=== PATIENT | male | born 1950 | race African-American/Black ===

== ENCOUNTER → 2021-03-17 | Outpatient (CLI) | payer OTHER ==
[~2021-03-17] VITALS: Ht 185.4 cm; Wt 108.6 kg
[~2021-03-17] MED LIST: ACCUNEB SO1.25 MG/1 INH; ARMONAIR DIGIH55 MCG INH; ASA81BEC PO; AZELASTINE137 MCG/0. NASAL; LASIX 20 MG TAB20 MG PO; LIPITOR40 MG PO; MULTIPLE VITAM1 EAC2 PO; OXYCODONE HCL5 MG PO; PLAVIX 75 MG TA75 MG PO; PROTONIX40 M2 PO; SODIUM BICARBO650 M3 PO; TAMSULOSIN HCL0.4 MG PO; VITAMIN C1000 MG PO; VITAMIN C500 M2 PO; ZINC-22050 MG PO; ZOSYN 3.373.375 GM/1 IV
[2021-03-17 09:07] LABS: HEMOGLOBIN 8.1 gm/dL (14.0-18.0); MCH 29.2 pg (26.0-34.0); MCHC 32.5 g/dL (28.0-37.0); RBC 2.78 mil/uL (4.50-6.00); RDW 17.8 % (10.5-14.5); WBC 6.4 thou/uL (4.0-11.0)
[2021-03-17 09:16] LABS: CALCIUM 9.3 mg/dL (8.5-10.1); CREATININE 1.2 mg/dL (0.7-1.3); POTASSIUM 4.1 mmol/L (3.5-5.1)
[2021-03-17 09:18] VITALS: BP 179/89
[2021-03-17 10:20] LABS: APTT 35.1 Seconds (24.5-32.8); INR 1.04; PROTIME 11.3 Seconds (10.5-12.1)
[2021-03-17 14:26] LABS: ABSOLUTE NEUTROPHILS 7.2 thou/uL (1.4-8.2); BASOPHILS 0.2 % (0.0-2.0); EOSINOPHILS 3.7 % (0.0-3.0); HEMATOCRIT 24.1 % (42.0-52.0); HEMOGLOBIN 7.7 gm/dL (14.0-18.0); LYMPHOCYTES 11.3 % (24.0-44.0); MCHC 31.7 g/dL (28.0-37.0); MCV 91.5 fL (80.0-100.0); MONOCYTES 1.8 % (1.0-8.0); PLATELET COUNT 378 thou/uL (150-400); RBC 2.64 mil/uL (4.50-6.00); RDW 17.5 % (10.5-14.5); WBC 8.6 thou/uL (4.0-11.0)
[2021-03-17 14:30] VITALS: BP 156/78
[2021-03-17 14:36] LABS: ALBUMIN 2.1 g/dL (3.4-5.0); CALCIUM 8.7 mg/dL (8.5-10.1); CREATININE 1.1 mg/dL (0.7-1.3); POTASSIUM 4.1 mmol/L (3.5-5.1); TOTAL BILIRUBIN 0.3 mg/dL (0.2-1.0); TOTAL PROTEIN 7.4 g/dL (6.4-8.2)
[2021-03-17 14:55] VITALS: BP 177/93
--- NOTE | 2021-03-17 15:18 | EKG ---
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
[2021-03-17 15:23] LABS: URINE BILIRUBIN NEGATIVE (Negative); URINE BLOOD NEGATIVE (Negative); URINE CLARITY CLEAR; URINE COLOR YELLOW; URINE GLUCOSE-RANDOM* NEGATIVE (Negative); URINE KETONES NEGATIVE (Negative); URINE LEUKOCYTES-REFLEX NEGATIVE (Negative); URINE NITRITE-REFLEX NEGATIVE (Negative); URINE PROTEIN (DIPSTICK) TRACE (Negative); URINE SPECIFIC GRAVITY 1.015 (1.005-1.035); URINE UROBILINOGEN 0.2 E.U./dl (0.2-1.0)
[2021-03-17 16:00] VITALS: BP 151/84
--- NOTE | 2021-03-19 13:49 | HC ---
[facility] [place] [address] CONSULTATION Name: LISE CAMPBELL Room #: REG [facility].#: [id number] Admission: 03/17/21 Attend Phys: Jaxon Forte MD Discharge: Date of : 50 Report #: [id number] THIS REPORT FOR: cc: González Leong MD, Christopher B. MD Forman,Andrea Hebert MD ~ DOC #: [id number] Andrea Fox MD DATE OF SERVICE: 03/17/2021 REASON FOR CONSULTATION: We were asked by Dr. Forte to see the patient. HISTORY OF PRESENT ILLNESS: The patient is a 70-year-old brought over from [facility] to have an arteriogram to evaluate a nonhealing wound in the right lower extremity. The patient is status post amputation of the fourth and fifth toes, done 02/19/2021 with inadequate vascularization to heal the wound. This nonhealing has been treated with wound VAC. Arteriogram today demonstrates a severe obstruction in the right common femoral artery and we evaluated the patient for femoral endarterectomy. PAST HISTORY: Significant for neurologic dysfunction related to previous stroke. Patient also has stage IIIA chronic renal dysfunction with the creatinine approximately 1.6. Patient has been treated for subacute osteomyelitis of the right foot and he also has swallowing difficulty. MEDICATIONS: At the half-way includes ascorbic acid, aspirin, atorvastatin, heparin, ____, piperacillin, tazobactam, tamsulosin, zinc sulfate. ALLERGIES: None known. The patient also has been treated for lower extremity arterial occlusive disease. SOCIAL HISTORY: The patient lives in half-way setting. REVIEW OF SYSTEMS: CONSTITUTIONAL: Denies fever or chills. EYES: No vision changes. HENT: No headache. No hearing problems. No sinus problems. RESPIRATORY: No history of shortness of breath. CARDIAC No history of chest pain, palpitations. GASTROINTESTINAL: Swallowing difficulty. No nausea, vomiting of blood. GENITOURINARY: No urgency, frequency or blood. MUSCULOSKELETAL: We note osteomyelitis in right foot and recent fourth and fifth toe amputations on the right. [facility] [address] [address] CONSULTATION Name: SAUNDRA CMAPBELLALL Room #: REG LIZ Orellana#: [id number] Admission: 03/17/21 Attend Phys: Jaxon Forte MD Discharge: Date of : 50 Report #: [id number] NEUROLOGIC: The patient has a weak right side and according to family is not ambulatory. ENDOCRINE: No goiter, no tremor. HEMATOLOGIC: No bruisability or bleeding. SKIN: No rash or infection reported. PHYSICAL EXAMINATION: VITAL SIGNS: Blood pressure 150/80, heart rate 53, O2 sat 100%, respiratory rate 14. HEENT: No scleral icterus. I see no arcus. NECK: No bruit. No mass. CHEST: Clear to auscultation. HEART: Rhythm regular. No murmur. ABDOMEN: Soft. Protuberant. No tenderness. EXTREMITIES: We note dressing on right foot with recent amputation site. VASCULAR: Femoral pulse is grade 2 on the right, grade 1 on the left. No popliteal dorsalis pedis or posterior tibial pulses are palpable in either extremity. SKIN: The skin in the groin is somewhat macerated due to patient's posture with intertriginous areas moist and some excoriation. No active infection. NEUROLOGIC: Does not move right lower extremity, right arm moves proximally reasonably well. I do not see good distal motion on the right upper extremity. ASSESSMENT: The patient has nonhealing lesions in the right lower extremity status post amputations for osteomyelitis. This is related to the critical stenosis in the right femoral artery. I agree that femoral endarterectomy is appropriate to treat this, however, I am concerned that the skin in the groin is inhospitable at this point. I have reviewed the risks and details of surgery with the patient and his family. Risks include bleeding, infection, anesthesia risks and of course failure of the operation, groin infection after femoral endarterectomy can be a devastating problem and I have suggested that we attempt to ____ help of our wound care colleagues to help clean the groin as best we can prior to surgery. Dr. Plascencia was kind enough to visit the patient with me and he will initiate a wound care regimen at the half-way and we will try to arrange for return for surgery next week. Thank you for consult. MD HEENA Marie/MAN/[address] [address] CONSULTATION Name: ADRIANLISE Room #: REG OLIVIAOleg Orellana#: [id number] Admission: 03/17/21 Attend Phys: Jaxon Forte MD Discharge: Date of : 50 Report #: [id number] <ELECTRONICALLY SIGNED> By: Andrea Fox MD 03/19/21 1349 1158 2156 Andrea Fox MD /nt
== END | disposition home or self-care (01) ==
LOC: CATH 03-15 09:40
PROVIDERS: Surgery Vascular Surgery; ATTEND Nuclear Medicine Nuclear Cardiology
DX: I70.213 Atherosclerosis of native arteries of extremities with intermittent claudication, bilateral legs (principal); I70.238 Atherosclerosis of native arteries of right leg with ulceration of other part of lower leg; L97.919 Non-pressure chronic ulcer of unspecified part of right lower leg with unspecified severity; I70.1 Atherosclerosis of renal artery; I12.9 Hypertensive chronic kidney disease with stage 1 through stage 4 chronic kidney disease, or unspecified chronic kidney disease; N18.30 Chronic kidney disease, stage 3 unspecified; I25.10 Atherosclerotic heart disease of native coronary artery without angina pectoris; E78.5 Hyperlipidemia, unspecified; Z98.890 Other specified postprocedural states; Z79.899 Other long term (current) drug therapy; Z79.82 Long term (current) use of aspirin; Z20.822 Contact with and (suspected) exposure to COVID-19
CPT/HCPCS: 62110; 62900; 70005

== ENCOUNTER 2021-03-26 06:17 | Inpatient (IN) | payer OTHER ==
[2021-03-26] VITALS (34 sets, daily range): BP systolic 86–186; BP diastolic 44–79
[~2021-03-26] VITALS: Ht 182.9 cm; Wt 97.7 kg
[~2021-03-26 06:17] MED LIST changes: +FERROUS SULFAT325 M2 PO; +FLOMAX0.4 MG PO; +GLYCOLAX119 GM PO; +MUPIROCIN1 GM TOP; +SPS15 GM/60 M PO; +VOLTAREN100 GM TOP
--- NOTE | 2021-03-26 18:00 | NUR ---
Dr. Judy london. re Hbg low. Awaiting call back.
[2021-03-26 18:20] LABS: HEMATOCRIT 21.2 % (42.0-52.0); MCH 28.8 pg (26.0-34.0); MCHC 31.9 g/dL (28.0-37.0); MCV 90.2 fL (80.0-100.0); RBC 2.35 mil/uL (4.50-6.00); RDW 18.6 % (10.5-14.5); WBC 7.8 thou/uL (4.0-11.0)
[2021-03-26 18:25] LABS: HEMOGLOBIN 6.7 gm/dL (14.0-18.0)
[2021-03-26 18:41] LABS: CALCIUM 8.4 mg/dL (8.5-10.1); CREATININE 1.2 mg/dL (0.7-1.3); MAGNESIUM 1.8 mg/dL (1.8-2.4); POTASSIUM 4.1 mmol/L (3.5-5.1)
[2021-03-26 19:11] LABS: FOLIC ACID 7.1 ng/mL (8.6-58.9)
[2021-03-27] VITALS (15 sets, daily range): BP systolic 95–142; BP diastolic 47–65
--- NOTE | 2021-03-27 00:09 | NUR ---
This RN spoke to patients sister at 2130. Updated on plan of care and patient status.
--- NOTE | 2021-03-27 00:10 | NUR ---
During RNs 0000 assessment, patients POPPY drain incision site is noticebly bleeding. Discussed with Dr Medrano earlier regarding day shifts similair observation. This RN applied pressure to site with ABDs for 10 minutes[address]aced secure tegaderm dressing over site. Will continue to monitor. Bleeding appears contained for now.
[2021-03-27 04:43] LABS: HEMOGLOBIN 7.7 gm/dL (14.0-18.0); MCH 29.3 pg (26.0-34.0); MCHC 32.1 g/dL (28.0-37.0); MCV 91.2 fL (80.0-100.0); RBC 2.63 mil/uL (4.50-6.00); RDW 18.4 % (10.5-14.5); WBC 5.8 thou/uL (4.0-11.0)
[2021-03-27 04:55] LABS: CALCIUM 8.5 mg/dL (8.5-10.1); CREATININE 1.2 mg/dL (0.7-1.3); MAGNESIUM 1.8 mg/dL (1.8-2.4); POTASSIUM 3.8 mmol/L (3.5-5.1)
--- NOTE | 2021-03-27 10:35 | NUR ---
PT TRANSFERED TO CCU VIA BED WITH CCU NURSE ON MONITOR. ALL BELONGINGS WITH PT. DR. YEAGER INFORMED. LEFT MESSAGE WITH PT SISTER LA.
[2021-03-27 17:33] LABS: % SATURATION 25 % (20-39); IRON 40 ug/dL (65-175); TIBC 157 ug/dL (250-450)
--- NOTE | 2021-03-27 17:40 | NUR ---
PT TRANSFERED TO UNIT FROM ICU. HE DOES HAVE A PIERRE, WOUND VAC IN PLACE AND SEALED REAPPLIED. PT IS ALERT ORIENTED X4. DOES NOT SEEM TO BE IN PAIN OR DISTRESS. WILL CONT WITH PLAN OF CARE.
[2021-03-28 04:26] VITALS: BP 152/71
[2021-03-28 04:40] VITALS: BP 152/71
--- NOTE | 2021-03-28 05:03 | NUR ---
PROGRESS PT ALERT ORIENTED TO SELF, STAFF AND PLACE. BUT FORGETFUL AND CONFUSED. VSS, LUNGS CLEAR, ABDOMEN SOFT WITH ACTIVE BOWELS SOUNDS. RIGHT GROIN WITH DRSG FROM PROCEDURE COVERED WITH TEGADERM INTACT AND CLEAN AND DRY NO SWELLING OR FIRMNESS NOTED. . WOUND VAC DRAPE TO RIGHT GROIN HAD A LEAK REINFORCED WITH TRANSPARENT DRESSING AND LEAK WAS SEALED SUCTION AT 125CM OLD BLOODY DRAINAGE NOTED IN TUBING BUT CANNISTER IS EMPTY. 25 CC'S OF SANGUINOUS DRAINAGE FROM POPPY TO LEFT GROIN. HYDROCODONE GIVEN FOR PAIN WITH EFFECT PT SLEPT AFTER EACH DOSE.
[2021-03-28 08:00] VITALS: BP 156/75
[2021-03-28 11:42] LABS: HEMATOCRIT 22.9 % (42.0-52.0); HEMOGLOBIN 7.3 gm/dL (14.0-18.0); MCH 29.1 pg (26.0-34.0); MCHC 31.9 g/dL (28.0-37.0); MCV 91.4 fL (80.0-100.0); RBC 2.5 mil/uL (4.50-6.00); RDW 18.1 % (10.5-14.5); WBC 5.9 thou/uL (4.0-11.0)
[2021-03-28 11:50] LABS: CREATININE 1.4 mg/dL (0.7-1.3); MAGNESIUM 1.8 mg/dL (1.8-2.4); POTASSIUM 3.7 mmol/L (3.5-5.1)
--- NOTE | 2021-03-28 14:20 | NUR ---
CALM, COOPERATIVE. ORIENTED TO SELF AND PLACE. SR WITH BBB PER TELE. DENIES CP, SOA. LABS DRAW READILY FROM CENTRAL LINE, BLOOD RETURN BRISK. FALL PRECAUTIONS IN PLACE.
[2021-03-28 16:00] VITALS: BP 157/81
[2021-03-28 19:17] VITALS: BP 140/51
[2021-03-29 04:16] VITALS: BP 140/58
[2021-03-29 05:48] LABS: HEMATOCRIT 20.9 % (42.0-52.0); HEMOGLOBIN 6.8 gm/dL (14.0-18.0); MCH 29.6 pg (26.0-34.0); MCHC 32.4 g/dL (28.0-37.0); MCV 91.3 fL (80.0-100.0); RBC 2.29 mil/uL (4.50-6.00); WBC 5.9 thou/uL (4.0-11.0)
[2021-03-29 06:03] LABS: CALCIUM 8.9 mg/dL (8.5-10.1); CREATININE 1.5 mg/dL (0.7-1.3); MAGNESIUM 1.8 mg/dL (1.8-2.4); POTASSIUM 3.6 mmol/L (3.5-5.1)
--- NOTE | 2021-03-29 06:06 | NUR ---
PATIENTS CARES WERE ASSUMED AT SHIFT CHANGE. PATIENT WAS ASSESSED AND MEDS WERE PASSED. PATIENT TURNED RIGHT TO LEFT WITH THE OBJECTIVE TO KEEP HIM OFF HIS BACK. PAIN MEDS GIVEN WERE PO MEDS. PATIENT WANTED IV PAIN MED HOWEVER WHEN ASK TO RATE HIS PAIN HE WOULD STATE 6/10. WILL CONTINUE TO MAKE HOURLY ROUNDS. THE BED IS IN A LOW AND LOCKED POSITION. THE BED ALARM IS ON.
[2021-03-29 07:25] VITALS: BP 160/57
--- NOTE | 2021-03-29 09:46 | NUR ---
Assess for low daniel. S/p right femoral endardectomy. Eating 100% of meals. ST has assessed and placed on modified diet order with swallow precautions. Wts usually 230-240 lb. ? current wt 250 lb. Low nutrition risk
[2021-03-29 11:05] VITALS: BP 134/66
[2021-03-29 15:35] VITALS: BP 155/67
[2021-03-29 16:17] LABS: HEMOGLOBIN 6.8 gm/dL (14.0-18.0); MCHC 32.2 g/dL (28.0-37.0)
[2021-03-29 16:18] LABS: HEMATOCRIT 21.2 % (42.0-52.0); MCH 29.3 pg (26.0-34.0); MCV 91.2 fL (80.0-100.0); RBC 2.33 mil/uL (4.50-6.00); RDW 18.3 % (10.5-14.5); WBC 6.1 thou/uL (4.0-11.0)
--- NOTE | 2021-03-29 17:20 | NUR ---
Patient admits to [facility] from [facility]. Patient had femoral enarterectomy. Patient alert answers questions appropriately. Sp with admissions at [facility]. Patient had been at another nursing facility. He admitted from that facility with gangrene foot. Patient admitted to [facility]. From [facility] patient admitted to [facility] 03/04/21 for post acute care. Wound care follows patient at [facility]. Plan return to [facility]. Will need to obtain auth for patient for post acute care. Therapy evals in process. Faxed updated clinical info to [facility]. Sp with sister Damon Mandujano and updated role of casemgt. Cont to follow for dc planning.
[2021-03-29 19:48] VITALS: BP 144/57
[2021-03-29 23:35] VITALS: BP 151/58
[2021-03-30] VITALS (7 sets, daily range): BP systolic 146–186; BP diastolic 55–87
--- NOTE | 2021-03-30 05:31 | NUR ---
PT RESTING IN BED THRU THE NOC, TURNING Q 2HRS AND NEEDED, WND VAC REMAINS INTACT, RIGHT FOOT DRESSING CDI ELEVATED IN PROFO BOOT, VSS, WILL CON'T TO MONITOR PER PPOC.
--- NOTE | 2021-03-30 11:49 | NUR ---
R groin POPPY discontinued, R groin prevena dressing reinforced- both by TIAGO Rodriguez.
--- NOTE | 2021-03-30 12:07 | PATH ---
[facility] [address] [place] [address] PATHOLOGY RPT PROCEDURE Name: LISE CAMPBELL Room #: 214-P [facility] IN M.R.#: [id number] Admission: 03/26/21 Date of : 50 Discharge: Report #: [id number] Path Case #: [id number] [facility] Accession Number: [id number] . 01 Material submitted: . femur - RIGHT FEMORAL PLAQUE. Modifiers: right . 01 Clinical history: . FEMORAL ENDARTERECTOMY . 02 Diagnosis: Right femoral plaque, femoral endarterectomy: - Fragments of vessel wall with myxoid changes as well as calcific atherosclerotic material. . (IUV:mml; 03/29/2021) . QL 03/29/2021 182 Local . 02 Electronically signed: . Sheba Lemon MD, Pathologist NPI- [id number] . 01 Gross description: . Received in formalin labeled "Lise Campbell, right femoral plaque" are multiple irregular, bazzi yellow calcified portions of firm tissue measuring in aggregate 5.1 x 3.2 x 1.4 cm. Specimen is serially sectioned to reveal a bazzi yellow gritty cut surface. Care Worker section of the specimen are submitted after decalcification in cassette A1.([facility]; 03/27/2021) GZA/GZA 03/27/2021 1100 Local . 02 Pathologist provided ICD-10: I73.89 . 02 CPT . 606471, 370614 Specimen Comment: A courtesy copy of this report has been sent to [phone] Specimen Comment: [id number] Specimen Comment: Report sent to / DR IVY Performed at: [address] [id number] MD Diomedes Lopez MD Phone: [phone] Performed at: [address] [id number] [address] [address] PATHOLOGY RPT PROCEDURE Name: LISE CAMPBELL Room #: 214-P [facility] IN M.R.#: [id number] Admission: 03/26/21 Date of : 50 Discharge: Report #: [id number] Path Case #: [id number] MD Sheba Lemon MD Phone: [phone]
--- NOTE | 2021-03-30 12:15 | O ---
[facility] [place] [address] OPERATIVE REPORT Name: LISE CAMPBELL Room #: 214-P ADM IN M.R.#: [id number] Admission: 03/26/21 Attend Phys: Mike Kim MD Discharge: Date of : 50 Report #: [id number] THIS REPORT FOR: cc: González Leong MD, Christopher B. MD Forman, John M. MD ~ DOC #: [id number] cc: Wound Care Unit Andrea Fox MD DATE OF SERVICE: 03/26/2021 PREOPERATIVE DIAGNOSIS: Right lower extremity arterial occlusive disease. POSTOPERATIVE DIAGNOSIS: Right lower extremity arterial occlusive disease. OPERATION: Right femoral endarterectomy with patch closure. SURGEON: Andrea Fox MD. REGENERATION OPERATOR: TIAGO Kulkarni. ANESTHESIA: General. INDICATIONS: The patient is a 70-year-old seen for Dr. Vasquez and for the wound care unit. The patient is a longterm resident who has nonhealing lesions of amputated fourth and fifth toes on the right foot. The patient has arterial occlusive disease and arteriography demonstrates a high-grade stenosis in the right common femoral artery that appears to be the limiting lesion. I have seen the patient last week, but was concerned about skin issues. The wound care unit has attending the patient in the longterm and has optimized the condition of his skin for this procedure. FINDINGS AND TECHNIQUE: After general anesthesia was established, incision was made in the right groin to expose the common, deep and superficial femoral artery. There was intense reaction from previous arteriogram and from the Mynx closure that obscured the vessel. Careful dissection allowed us to isolate the vessel, however. Once we were satisfied with the isolation of the vessel, 10,000 units of heparin were given. The femoral vessels were occluded and the arteriotomy was made. The endarterectomy was performed removing a significant bulk of calcium. When this was complete, tacking sutures were placed at the transition zone and then the arteriotomy was closed with a thin-walled pericardial patch flows established after the vessels were backbled. [facility] [address] [place] [address] OPERATIVE REPORT Name: ADRIANLISE Room #: 214-P [facility] IN M.R.#: [id number] Admission: 03/26/21 Attend Phys: Mike Kim MD Discharge: Date of : 50 Report #: [id number] When hemostasis was satisfactory, the wound was irrigated with antibiotic solution. A drain was placed and then the wound was closed in layers and then a Prevena dressing was applied. Protamine had been given to partially reverse the heparin. The patient was taken to the recovery area in good condition with a warm foot. All counts were reported as correct. Andrea Fox MD JF/EL <ELECTRONICALLY SIGNED> By: Andrea Fox MD 03/30/21 1215 0855 1117 Andrea Fox MD /robb
--- NOTE | 2021-03-30 12:21 | HC ---
[facility] [place] [address] CONSULTATION Name: LISE CAMPBELL Room #: 214-P ADM IN M.R.#: [id number] Admission: 03/26/21 Attend Phys: Mike Kim MD Discharge: Date of : 50 Report #: [id number] THIS REPORT FOR: cc: González Leong MD, Christopher B. MD Stephens, Thad A. MD ~ DOC #: [id number] Jamari Blue MD DATE OF SERVICE: 03/29/2021 WOUND CARE CONSULTATION PERSONAL PHYSICIAN: Dr. Alvaro Leong. CHIEF COMPLAINT: Right foot wound, status post amputation. HISTORY OF PRESENT ILLNESS: This is a 70-year-old black male who we have been following at a skilled facility for a wound to his right foot, status post fourth and fifth ray resection. The patient now most recently had angiogram with multiple stents placed. The patient most recently was seen by Dr. Fox and had endarterectomy of his right common femoral artery. The patient denies any other associated concerns at this time. The patient denies any other associated wounds. We have been asked to follow the patient for the right foot wound. The patient had an amputation secondary to osteomyelitis of the 4th and 5th toes. PAST MEDICAL HISTORY: Significant for hypertension, coronary artery disease, hyperlipidemia, previous CVA, peripheral arterial disease, now status post multiple stents and the recent endarterectomy. CURRENT MEDICATIONS: Multiple, I reviewed the patient's medication list. DRUG ALLERGIES: None. SOCIAL HISTORY: The patient does not smoke or drink alcohol. FAMILY HISTORY: Not pertinent to current medical condition. REVIEW OF SYSTEMS: CONSTITUTIONAL: The patient denies fevers or chills. NEUROLOGIC: The patient denies any numbness, tingling, weakness in arms and legs. EYES: No complaints. ENT: No complaints. CARDIOVASCULAR: The patient denies chest pain, palpitations, peripheral edema. RESPIRATORY: The patient denies shortness of breath, cough or wheezes. [facility] [address] [place] [address] CONSULTATION Name: LISE CAMPBELL Room #: 214-[facility] IN ..#: [id number] Admission: 03/26/21 Attend Phys: Mike Kim MD Discharge: Date of : 50 Report #: [id number] GASTROINTESTINAL: The patient denies nausea, vomiting, abdominal pain. GENITOURINARY: The patient denies urgency or frequency. MUSCULOSKELETAL: No complaints. SKIN: The patient has a surgical wound of the fourth and fifth, right foot amputation site, which is necrotic. PHYSICAL EXAMINATION: VITAL SIGNS: Temperature 37.4, pulse 84, respirations 16, BP 134/66. GENERAL: This is alert and oriented x2 to person and place, but not time. A black male who is in no obvious distress. HEENT: Normocephalic, atraumatic. Mucous membranes are somewhat dry. Pupils are round. Sclerae are white. NECK: Without JVD. LUNGS: Clear. HEART: Regular. ABDOMEN: Soft, nontender. Evaluation of right groin reveals a negative pressure device to be in place and functioning. EXTREMITIES: Evaluation of right foot reveals the foot to be warm to touch. There is 1+ dorsalis pedis and posterior tibial pulse. Evaluation of the lateral aspect of the foot reveals surgical wound with a dry eschar. There is no erythema or warmth. No signs of cellulitis. Left foot is intact. NEUROLOGIC: Cranial nerves II through XII grossly intact. Motor and sensory are grossly intact. LABORATORY DATA: White count 5.9, hemoglobin 6.8, BUN 14, creatinine 1.5, albumin 2.1. IMPRESSION: 1. Surgical wound, right lateral foot, status post fourth and fifth ray amputation with necrosis. 2. Peripheral arterial disease, now status post multiple stents and recent right common femoral endarterectomy. 3. Protein calorie malnutrition -- severe with albumin of 2.1. 4. Generalized debility. PLAN: At this time, we will consult podiatry for debridement of the right foot wound. We will continue with maximizing the patient's oral protein supplementation for healing. We will utilize physical and occupational therapy and strengthening. We will continue all other current medications. I appreciate the ability to consult. Jamari Blue MD [facility] [place] [address] CONSULTATION Name: LISE CAMPBELL Room #: 214-P ADM IN M.R.#: [id number] Admission: 03/26/21 Attend Phys: Mike Kim MD Discharge: Date of : 50 Report #: [id number] <ELECTRONICALLY SIGNED> By: Jamari Blue MD 03/30/21 1221 1140 0024 Jamari Blue MD /nt
[2021-03-31 04:45] VITALS: BP 158/80
[2021-03-31 07:50] VITALS: BP 151/71
[2021-03-31 09:54] LABS: HEMATOCRIT 24.5 % (42.0-52.0); HEMOGLOBIN 7.9 gm/dL (14.0-18.0); MCH 28.8 pg (26.0-34.0); MCHC 32.4 g/dL (28.0-37.0); MCV 88.8 fL (80.0-100.0); RBC 2.75 mil/uL (4.50-6.00); RDW 18.5 % (10.5-14.5); WBC 6.3 thou/uL (4.0-11.0)
[2021-03-31 10:00] LABS: CALCIUM 9.1 mg/dL (8.5-10.1); CREATININE 1.4 mg/dL (0.7-1.3); MAGNESIUM 1.8 mg/dL (1.8-2.4); POTASSIUM 3.7 mmol/L (3.5-5.1)
--- NOTE | 2021-03-31 12:07 | NUR ---
Clinical updated faxed to [facility] as well as [facility] for SNF auth request. Possible dc to snf tomorrow pending I/D per Podiatry. Will follow.
--- NOTE | 2021-03-31 14:16 | NUR ---
PT IS AXOX3; PT IS FORGETFUL OF DATE/DAY. VSS, AFEBRILE, PT IS SR/1AVB ON MONITOR. PT HAS WOUND VAC ATTACHED TO R GROIN. WOUND VAC HAS BEEN INTERMITTENT WITH SEAL. DR YEAGER CONSULTED, PT/OT CONSULTED, CASE MGMT CONSULTED, PODIATRY CONSULTED. PT TO BE NPO AFTER MIDNIGHT WITH DEBRIDEMENT/SURGERY ON R FOOT. FREQUENT ROUNDING.
[2021-03-31 15:39] VITALS: BP 152/72
[2021-04-01] VITALS (8 sets, daily range): BP systolic 107–148; BP diastolic 55–63
[2021-04-01 05:04] LABS: HEMATOCRIT 21.8 % (42.0-52.0); HEMOGLOBIN 7.2 gm/dL (14.0-18.0); MCH 29.4 pg (26.0-34.0); MCHC 33.2 g/dL (28.0-37.0); MCV 88.7 fL (80.0-100.0); RBC 2.46 mil/uL (4.50-6.00); RDW 18.6 % (10.5-14.5); WBC 5.4 thou/uL (4.0-11.0)
[2021-04-01 05:24] LABS: CALCIUM 8.6 mg/dL (8.5-10.1); CREATININE 1.2 mg/dL (0.7-1.3); MAGNESIUM 1.9 mg/dL (1.8-2.4); POTASSIUM 3.8 mmol/L (3.5-5.1)
--- NOTE | 2021-04-01 06:13 | NUR ---
PATIENT IS A/O X4 HE IS SLOW TO RESPOND AND THINK THINGS THROUGH. PATIENTS CARE WAS ASSUMED AT SHIFT CHANGE. PATIENT WAS ASSESSED AND MEDS WERE PASSED. ROUNDS WERE DONE DRESSING PLACED. THE BED IS IN A LOW AND LOCKED POSITION.
--- NOTE | 2021-04-01 08:38 | H ---
[facility] [place] [address] HISTORY AND PHYSICAL Name: LISE CAMPBELL Room #: 214-P ADM IN M.R.#: [id number] Admission: 03/26/21 Attend Phys: Mike Kim MD Discharge: Date of : 50 Report #: [id number] THIS REPORT FOR: cc: González Leong MD, Christopher B. MD Rizzi,Jaime Hebert DPM ~ DOC #: [id number] Jaime Webb MD DATE OF SERVICE: 03/26/2021 INTRODUCTION: This is a 70-year-old -[place] male who I am asked to be seen for a right foot wound. HISTORY OF PRESENT ILLNESS: This is a 70-year-old -[place] male with multiple medical comorbidities. The patient has a wound on the right foot, status post previous fourth and fifth partial ray resection. The patient has not been healing, but he did see a cardiothoracic surgeon who did a subtotal right common femoral endarterectomy and also seeing Dr. Pedraza for further stenting. PAST MEDICAL HISTORY: Significant for hypertension, CAD, PAD, history of cerebrovascular accident as well, hyperlipidemia, high cholesterol. MEDICATIONS: In the chart, no changes to them, was taking atorvastatin, Lasix, Zosyn, Protonix, albuterol, Flomax and Plavix. ALLERGIES: No known drug allergies. PAST SURGICAL HISTORY: Noted a previous right partial fifth and fourth ray resection, previous femoral endarterectomy and stenting by Dr. Pedraza to lower extremity. FAMILY HISTORY: Noncontributory. SOCIAL HISTORY: The patient is seen at bedside at [facility] somewhat confused, but pleasant. He is retired, not working. No history of smoking or recreational drugs. PHYSICAL EXAMINATION: GENERAL: The patient is a well-developed, well-nourished -[place] male. EXTREMITIES: The upper extremity was worked up by the hospitalist and the ER physician, has no change in upper extremity. The lower extremity exam shows he has an open wound on the right lateral foot. The tunnel was down further along the metatarsals and also along the tendons. [facility] [address] [place] [address] HISTORY AND PHYSICAL Name: LISE CAMPBELL Room #: 214-P [facility] IN M.R.#: [id number] Admission: 03/26/21 Attend Phys: Mike Kim MD Discharge: Date of : 50 Report #: [id number] The wound has no significant granular tissue present, but more slough and tannish tissue and friable tissue. Previous vascular exam was worked up, is in the chart. X-rays are not taken thus far. LABORATORY DATA: His white blood cell count is normal. ASSESSMENT: Wounds to right foot with peripheral vascular disease, previously revascularized. PLAN: For right foot debridement. I offered him the possibility of a third digit amputation as well. I want to get a good plantar and dorsal flap, so this will heal and may be difficult to heal without being aggressive with this. I also see the possibility of this being staged and possible transmetatarsal amputation at some point. The patient and I discussed the possibility of a third digit amputation, but was very adamant about no other toes being amputated. I did start the conversation, so he understands this is a possibility though he also may have to face the reality of a transmetatarsal amputation because of the healing potential at this point could be difficult. He is scheduled for 04/01 that is tomorrow morning at 7:30 a.m. We talked about risks and benefits, risks being transmetatarsal amputation, delayed healing and possible BKA. MD URI [facility] [place] <ELECTRONICALLY SIGNED> By: Jaime Webb DPM 04/01/21 0838 1319 1358 Jaime Webb DPM /nt
--- NOTE | 2021-04-01 14:36 | NUR ---
Pt had I/D this am in the OR per Dr. Webb. Pt is NWB except for stand pivot tx using the postop shoe. Therapy to reeval tomorrow and this update and clarification on wound care and any iv atb orders will need to be faxed to [facility] with a new SNF auth request. [facility] called back today and cancelled the request from yesterday as the pt is not dc ready today and they do not feel they have sufficent documentation to auth a SNF stay. They are concerned about the pt's rehab potential and do not feel he needs snf unless he is on iv atb. Pt given 1xdose of IV ATB prior to the OR this am. Cultures pending and Dr. Webb to defer to Wound care regarding any iv atb orders at ma. Clinical update and [facility] request for new auth submission tomorrow called to admissions at [facility]. Discussed with the care team. CM to resubmit [facility] snf auth request in the am with the above requested documentation.
[2021-04-02] VITALS (8 sets, daily range): BP systolic 109–147; BP diastolic 54–67
--- NOTE | 2021-04-02 04:48 | NUR ---
ASSUMED PT CARE AT CHANGE OF SHIFT, PT IS AWAKE, ALERT AND ORIENTED, ABLE TO MAKE NEEDS KNOWN, PAIN MEDS Q4HRS PRN FOR R. EXTREMITY PAIN, DRESSING TO THE R. FOOT INTACT; ASSESSMENTS CHARTED; MEDS GIVEN PER MAR; SR/BBB ON TELE; NO NEEDS AT THIS TIME; WILL CONTINUE TO MONITOR AND FOLLOW POC
[2021-04-02 05:34] LABS: HEMATOCRIT 21.4 % (42.0-52.0); MCH 29.1 pg (26.0-34.0); MCHC 32.6 g/dL (28.0-37.0); MCV 89.2 fL (80.0-100.0); RBC 2.4 mil/uL (4.50-6.00); RDW 17.9 % (10.5-14.5); WBC 5.7 thou/uL (4.0-11.0)
[2021-04-02 05:59] LABS: CALCIUM 8.7 mg/dL (8.5-10.1); CREATININE 1.3 mg/dL (0.7-1.3); POTASSIUM 4.4 mmol/L (3.5-5.1)
--- NOTE | 2021-04-02 09:18 | NUR ---
WOUND CONSULT; ROUNDING WITH DR LEONCIO SOTOMAYOR TODAY. WE ASSESSED THE RIGHT FOOT. FIRST ASSESSMENT SINCE SURGERY. THE INCISION LINE IS APPROXIMATED WITH SUTURES. THE ISCISION BEGAN TO BLEED WITH MILD LUCRECIA BLEEDING. I HELD PRESSURE FOR A FEW MINUTES THEN THE BLEEDING SLOWED. I REPORTED THE TO THE RN TODAY AND ASKED HIM TO ASSESS THE DRESSING FOR BLEEDING. THE PERIWOUND IS WNL AT THIS TIME. RECOMMENDATIONS; 1-XEROFORM GAUZE, ABD,KERLIX FOR NOW. DISCUSSED WITH RN
--- NOTE | 2021-04-02 20:06 | PATH ---
[facility] [address] [place] [address] PATHOLOGY RPT PROCEDURE Name: LISE CAMPBELL Room #: 214-P ADM IN M.R.#: [id number] Admission: 03/26/21 Date of : 50 Discharge: Report #: [id number] Path Case #: [id number] [facility] Accession Number: [id number] . 01 Material submitted: . foot - RIGHT FOOT . Modifiers: right . 01 Clinical history: . FEMORAL ENDARTERECTOMY DEBRIDEMENT RIGHT FOOT WOUND . 02 Diagnosis: Right foot, debridement: - Fragments of subcutaneous tissue showing marked acute inflammation, fibrinoid degeneration, dystrophic calcifications as well as fat necrosis, compatible with debridement tissue. 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 02 Electronically signed: . Sheba Lemon MD, Pathologist NPI- [id number] . 01 Gross description: . The specimen is received in formalin, labeled "Lise Campbell, right foot" is a 3 x 1 x 0.6 cm aggregate of soft pink-bazzi to renteria-white tissue. Skin or bone is not identified. Archivist Military History sections are submitted in A1.([facility]; 04/01/2021) MISTY/MISTY 04/02/2021 1612 Local . 02 Pathologist provided ICD-10: I96, S91.301A . 02 CPT . 191528 Specimen Comment: A courtesy copy of this report has been sent to [phone] Specimen Comment: [phone], , Specimen Comment: Report sent to ,DR YEAGER,DR JARVIS / DR IVY Performed at: [address] [id number] MD Diomedes Lopez MD Phone: [phone] Performed at: [address] [id number] [address] [address] PATHOLOGY RPT PROCEDURE Name: LISE CAMPBELL Room #: 214-P [facility] IN M.R.#: [id number] Admission: 03/26/21 Date of : 50 Discharge: Report #: [id number] Path Case #: [id number] MD Sheba Lemon MD Phone: [phone]
[2021-04-03 05:13] VITALS: BP 117/59
--- NOTE | 2021-04-03 05:31 | NUR ---
ASSUMED CARE OF PT AT SHIFT CHANGE. PT IS AOX2-3 AND LETS NEEDS BE KNOWN. FALL PRECAUTION IN PLACE. PT REPORTED PAIN AND WAS TREATED PRNS. ASSESSMENT CHARTED. PT TURNED WHEN AGREEABLE. RLE DRESSINGS ARE C/D/I. PT WAS ALE TO GET COMFORTABLE AND SLEEP PART OF THE SHIFT. VSS AND NO S/S OF ACUTE DISTRESS. WILL CONTINUE TO MONITOR FOR CHANGES.
[2021-04-03 07:40] VITALS: BP 123/60
[2021-04-03 11:20] VITALS: BP 137/70
[2021-04-03 15:45] VITALS: BP 142/59
--- NOTE | 2021-04-03 17:52 | NUR ---
Patient refused dressing change.
[2021-04-03 20:15] VITALS: BP 130/55
--- NOTE | 2021-04-04 03:43 | NUR ---
ASSESSMENTS CHARTED, MEDS CHARTED GIVEN. PATIENT LAYING IN BED DURING SHIFT. PATIENT REFUSES TO BE MOVED. PATIENT IS FEELING CONSTIPATED. REFUSED MIRALAX, BUT DID DRINK PRUNE JUICE. PATIENT CONTINUOUSLY ASKS FOR PAIN MEDS PRIOR TO WHEN THEY ARE AVAILABLE. PATIENT IS GOING TO HAVE A ULTRASOUND OF SOFT TISSUE IN THE AM. MIRIAM DRESSING FROM ENDARECTOMY IS NOT SEALED AT THIS POINT. DRESSING CLEANED AND REINFORCED. FALL PRECAUTIONS IN PLACE DURING SHIFT.
[2021-04-04 04:26] LABS: ABSOLUTE NEUTROPHILS 3.6 thou/uL (1.4-8.2); BASOPHILS 0.2 % (0.0-2.0); EOSINOPHILS 10.4 % (0.0-3.0); HEMATOCRIT 21.1 % (42.0-52.0); HEMOGLOBIN 7.1 gm/dL (14.0-18.0); LYMPHOCYTES 14.6 % (24.0-44.0); MCH 30.1 pg (26.0-34.0); MCHC 33.5 g/dL (28.0-37.0); MCV 89.9 fL (80.0-100.0); MONOCYTES 9.8 % (1.0-8.0); PLATELET COUNT 446 thou/uL (150-400); RBC 2.35 mil/uL (4.50-6.00); RDW 17.8 % (10.5-14.5); WBC 5.5 thou/uL (4.0-11.0)
[2021-04-04 04:45] VITALS: BP 118/53
[2021-04-04 04:46] LABS: CALCIUM 8.8 mg/dL (8.5-10.1); CREATININE 1.4 mg/dL (0.7-1.3); POTASSIUM 4.3 mmol/L (3.5-5.1)
[2021-04-04 08:00] VITALS: BP 128/60
[2021-04-04 11:50] VITALS: BP 141/68
[2021-04-04 16:05] VITALS: BP 124/58
[2021-04-04 20:17] VITALS: BP 131/62
--- NOTE | 2021-04-05 01:48 | NUR ---
PATIENT WELL CONTROLLED WITH PAIN MEDICINE BUT KEEP ON ASKING FOR MORE PAIN MEDS EVERYTIME.REPOSITIONED Q2 HOURS.INCONTINENT AT TIMES AND SOMETIMES USES THE URINAL.MONITOR SHOWS SR.POC CONTINUED.
[2021-04-05 02:05] LABS: GLYCOHEMOGLOBIN (HGB A1C) 5.5 % (4.8-5.6)
[2021-04-05 04:10] VITALS: BP 134/64
[2021-04-05 04:34] LABS: CALCIUM 8.7 mg/dL (8.5-10.1); CREATININE 1.4 mg/dL (0.7-1.3); POTASSIUM 4.2 mmol/L (3.5-5.1)
[2021-04-05 04:40] LABS: HEMOGLOBIN 6.8 gm/dL (14.0-18.0)
[2021-04-05 04:42] LABS: HEMATOCRIT 20.7 % (42.0-52.0); MCH 29.4 pg (26.0-34.0); MCHC 32.7 g/dL (28.0-37.0); MCV 89.9 fL (80.0-100.0); RBC 2.3 mil/uL (4.50-6.00); RDW 17.8 % (10.5-14.5)
[2021-04-05 07:35] VITALS: BP 136/68
[2021-04-05 11:50] VITALS: BP 143/74
--- NOTE | 2021-04-05 12:55 | NUR ---
Followup: eating 50-100% of meals. Visit during lunch today and pt voiced no concerns. Wt trends have several outlyers, recommend zero bed and reweigh. Low nutrition risk
[2021-04-05 14:28] VITALS: BP 113/55; BP 128/55
--- NOTE | 2021-04-05 15:23 | NUR ---
met with patient to [facility]. Patient reports he does not want to return to [facility]. He reports if they would have done better with care he would not be here and lost 2 more toes. Discussed returning to [facility] and seeking alternate placement, Discussed having liason from [facility] to visit with patient regarding care concerns. Gave patient a list of [employer] skilled facilites. Patient wants to sp with sister aJja. [employer]emgt has left 2 messaged for Eliane.
[2021-04-05 15:30] VITALS: BP 105/47
--- NOTE | 2021-04-05 17:51 | NUR ---
PATIENT RECEIVED 1 UNIT PRBC WITHOUT COMPLICATIONS NOTED. PATIENT WORKED WITH PT AND REPORTS STANDING WITH ASSISTANCE. OT WORKED WITH PATIENT WELL. PATIENT HAS REPORTED THAT HE DOES NOT WANT TO RETURN TO THE SNF HE CAME FROM DUE TO "LACK OF CARE" AND WOULD LIKE TO DISCUSS THIS WITH HIS SISTER, ENVIRONMENTAL CONSERVATION OFFICER IS WORKING WITH PATIENT.
[2021-04-05 19:00] VITALS: BP 116/56
[2021-04-06 03:25] LABS: HEMATOCRIT 23.7 % (42.0-52.0); HEMOGLOBIN 7.8 gm/dL (14.0-18.0); MCH 29.5 pg (26.0-34.0); MCV 89.4 fL (80.0-100.0); RBC 2.65 mil/uL (4.50-6.00); RDW 17.2 % (10.5-14.5); WBC 5.5 thou/uL (4.0-11.0)
[2021-04-06 03:42] LABS: CALCIUM 9.1 mg/dL (8.5-10.1); CREATININE 1.3 mg/dL (0.7-1.3); POTASSIUM 4.2 mmol/L (3.5-5.1)
[2021-04-06 04:00] VITALS: BP 168/63
--- NOTE | 2021-04-06 06:50 | NUR ---
REPOSITIONED.CLEANED,SOMETIMES INCONTINENT.PAIN WELL CONTROLLED.MONITOR SHOWS SR.POC CONTINUED.
[2021-04-06 07:50] VITALS: BP 146/69
[2021-04-06 11:40] VITALS: BP 165/63
[2021-04-06 15:50] VITALS: BP 152/62
[2021-04-06 17:24] VITALS: BP 152/62
[2021-04-06] MEDS ORDERED: TRIPLE ANTIBIOT14 GM TOP (17:25)
[2021-04-06] MEDS ORDERED: COREG3.125 MG PO (17:25)
[2021-04-06] MEDS ORDERED: VITAMIN B-12500 MCG PO (17:25)
[2021-04-06] MEDS ORDERED: MEROPENEM500 MG IV (17:25)
[2021-04-06] MEDS ORDERED: FOLIC ACID1 MG PO (17:25)
--- NOTE | 2021-04-06 17:38 | NUR ---
Nai patients sister has not returned call. Sp with patient regarding new placement or return to [facility]. Patient reports he does not want to return to [facility]. He reports talk to his sister Nai who has not returned call. Patient gave me number to call other sistet Karo. Karo answered phone reviewed situation. She reports [facility] phone does not work but she will discuss with sister Shaylee and Nai. Requested Dr Kaur call sisters. Once Dr Kaur called [facility] They called [facility] to assure plan to return to [facility]. After discussion with phys they report best for patient to return. Rec auth from insurance. Updated phys regarding discharge. rec orders. spoke with sisters again in agreement with [phone] chart copied. orders faxed.
--- NOTE | 2021-04-06 19:21 | NUR ---
PATIENT RECEIVED DC ORDERS. PATIENT TO DC WITH TUNNELED LINE IN RIGHT CHEST. TELEPHONE REPORT GIVEN TO DINESH BURRIS. DESCRIBED RIGHT FOOT AND RIGHT GROIN AND MEDICAL HISTORY IN DETAIL. ALL QUESTIONS ANSWERED ATT. @1920 PATIENT WAS TRANSFERRED TO [facility] VIA EMS/STRETCHER. VSS. PATIENT IS A/OX3, FC, USES URINAL AND BED COTA.
== END 2021-04-06 19:31 | DRG 856 ==
LOC: ICU 06:17 → 2N 06:17 → TBA 06:17 → PRE 10:13 → ICU 14:31 → PRE 17:08 → 2N 03-27 10:32
PROVIDERS: Internal Medicine; Physician Assistant; ADMIT Internal Medicine; ATTEND Internal Medicine
DX: T81.41XA Infection following a procedure, superficial incisional surgical site, initial encounter (principal); E43 Unspecified severe protein-calorie malnutrition; D62 Acute posthemorrhagic anemia; M86.8X7 Other osteomyelitis, ankle and foot; N17.9 Acute kidney failure, unspecified; I73.9 Peripheral vascular disease, unspecified; I77.89 Other specified disorders of arteries and arterioles; L73.2 Hidradenitis suppurativa; I25.10 Atherosclerotic heart disease of native coronary artery without angina pectoris; E78.5 Hyperlipidemia, unspecified; E78.00 Pure hypercholesterolemia, unspecified; I12.9 Hypertensive chronic kidney disease with stage 1 through stage 4 chronic kidney disease, or unspecified chronic kidney disease; N18.9 Chronic kidney disease, unspecified; E11.22 Type 2 diabetes mellitus with diabetic chronic kidney disease; Y83.8 Other surgical procedures as the cause of abnormal reaction of the patient, or of later complication, without mention of misadventure at the time of the procedure; E11.69 Type 2 diabetes mellitus with other specified complication; M10.9 Gout, unspecified; Z20.822 Contact with and (suspected) exposure to COVID-19; Z86.73 Personal history of transient ischemic attack (TIA), and cerebral infarction without residual deficits; Z68.29 Body mass index [BMI] 29.0-29.9, adult; Z95.1 Presence of aortocoronary bypass graft; Y92.89 Other specified places as the place of occurrence of the external cause
CPT/HCPCS: 10081; 10204; 47375; 48889; 50010; 50101; 50386; 50455; 50643; 50951; 50953; 52287; 56524; 56526; 56527; 56528; 56534; 56668; 56760; 57091; 57092; 57093; 58731; 62110; 62900; 70005; 83006; 85076

== ENCOUNTER → 2021-04-26 | Outpatient (CLI) | payer OTHER ==
[~2021-04-26] MED LIST changes: +COREG3.125 MG PO; +FOLIC ACID1 MG PO; +MEROPENEM500 MG IV; +TRIPLE ANTIBIOT14 GM TOP; +VITAMIN B-12500 MCG PO
--- NOTE | 2021-04-26 13:37 | NUR ---
TICC LINE PULLED AT BESIDE IN HOLDING ROOM. LINE PULLED WITHOUT ISSUE. PCXR DONE TO CONFIRM SAFE DISCONTINUATION OF TICC LINE. NO ISSUES NOTED. PT'S TRANSPORTATION CALLED TO PICK PT UP. VSS.
== END | disposition home or self-care (01) ==
LOC: SPEC 12:29
PROVIDERS: ATTEND Internal Medicine
DX: Z45.2 Encounter for adjustment and management of vascular access device (principal); I10 Essential (primary) hypertension; I25.10 Atherosclerotic heart disease of native coronary artery without angina pectoris; E78.5 Hyperlipidemia, unspecified; I73.9 Peripheral vascular disease, unspecified; Z98.890 Other specified postprocedural states; Z79.899 Other long term (current) drug therapy; Z86.73 Personal history of transient ischemic attack (TIA), and cerebral infarction without residual deficits

== ENCOUNTER → 2021-12-23 | Outpatient (CLI) | payer OTHER ==
[~2021-12-23] VITALS: Ht 182.9 cm; Wt 110.2 kg
[~2021-12-23] MED LIST changes: +CARVEDILOL12.5 MG PO; +CLOTRIMAZOLE-BE15 GM PO; +DULCOLAX STOOL100 M1 PO; +GABAPENTIN100 MG PO; +HYDROXYZINE HCL25 M2 PO; +RA SENNA PLUS1 EACH PO
[2021-12-23 08:38] VITALS: BP 166/58
== END | disposition home or self-care (01) ==
LOC: CATH 08:16
PROVIDERS: ATTEND Nuclear Medicine Nuclear Cardiology
DX: I70.238 Atherosclerosis of native arteries of right leg with ulceration of other part of lower leg (principal); L97.919 Non-pressure chronic ulcer of unspecified part of right lower leg with unspecified severity; I70.1 Atherosclerosis of renal artery; I12.9 Hypertensive chronic kidney disease with stage 1 through stage 4 chronic kidney disease, or unspecified chronic kidney disease; N18.30 Chronic kidney disease, stage 3 unspecified; I25.10 Atherosclerotic heart disease of native coronary artery without angina pectoris; E78.5 Hyperlipidemia, unspecified; M10.9 Gout, unspecified; F03.90 Unspecified dementia, unspecified severity, without behavioral disturbance, psychotic disturbance, mood disturbance, and anxiety; K21.9 Gastro-esophageal reflux disease without esophagitis; E66.9 Obesity, unspecified; Z98.890 Other specified postprocedural states; Z79.899 Other long term (current) drug therapy; Z86.73 Personal history of transient ischemic attack (TIA), and cerebral infarction without residual deficits; Z87.891 Personal history of nicotine dependence; Z95.1 Presence of aortocoronary bypass graft; Z20.822 Contact with and (suspected) exposure to COVID-19

== ENCOUNTER 2022-01-06 07:42 | Observation (INO) | payer OTHER ==
[~2022-01-06] VITALS: Ht 182.9 cm; Wt 109.8 kg
[~2022-01-06 07:42] MED LIST changes: +ENULOSE10 GM/15 M PO; +MICATIN14 GM TOP; +SUPER THERAVIT1 EACH PO; +TORSEMIDE10 MG PO
[2022-01-06 08:53] VITALS: BP 174/75
[2022-01-06 09:24] LABS: HEMATOCRIT 33.2 % (42.0-52.0); HEMOGLOBIN 10.5 gm/dL (14.0-18.0); MCH 31.5 pg (26.0-34.0); MCHC 31.7 g/dL (28.0-37.0); MCV 99.1 fL (80.0-100.0); RBC 3.35 mil/uL (4.50-6.00); RDW 17.1 % (10.5-14.5); WBC 6.1 thou/uL (4.0-11.0)
[2022-01-06 09:34] LABS: CALCIUM 9.4 mg/dL (8.5-10.1); CREATININE 1.3 mg/dL (0.7-1.3)
[2022-01-06 09:40] LABS: POTASSIUM 6.1 mmol/L (3.5-5.1)
[2022-01-06 12:37] VITALS: BP 154/79
--- NOTE | 2022-01-06 12:44 | EKG ---
[place] [address] [facility] [place] [address] ELECTROCARDIOGRAM REPORT Name: LISE CAMPBELL [id number] Admission: 01/06/22 Attend Phys: Jaxon Forte MD Discharge: Date of : 50 Report #: [id number] [facility] Test Date: 2022-01-06 Test Time: 09:59:27 Pat Name: LISE CAMPBELL Department: Room: Gender: M Report Manager: : 1950 Requested By: Julia Skelton Order Number: [id number] MD: Filiberto Castro Measurements Intervals [place] Rate: 60 P: -28 WA: 251 QRS: -52 QRSD: 154 T: -83 QT: 418 QTc: 418 Interpretive Statements Sinus rhythm Prolonged WA interval RBBB and LAFB Abnormal T, consider ischemia, lateral leads Compared to ECG 03/17/2021 15:15:56 T-wave abnormality now present Possible ischemia now present Electronically Signed On 01-06-2022 12:44:24 AUTOMATIC WINDER OPERATOR by Filiberto Castro [email or web address] <ELECTRONICALLY SIGNED> By: Filiberto Castro MD 01/06/22 1244 [id number] Filiberto Castro MD /EPI
[2022-01-06 15:22] VITALS: BP 150/72
--- NOTE | 2022-01-06 16:37 | NUR ---
PT ADMITTED RELATED TO CATH/ABDOMINAL AORTOGRAM W. LOWER EXTREMITY RUNOFF. CM REVIEWED CHART AND SPOKE WITH CARE TEAM. CM MET WITH PT AT BEDSIDE THIS DAY. PT APPEARED TO BE ALERT TO SELF AND LOCATION. PT INDICATED HE HAD BEEN AT [facility]. PT INDICATED HE HAD USED A FWW TO ASSIST WITH MOBILITY [facility]. CM CALLED AND SPOKE WITH PT'S SISTER/DPOA AND SHE CONFIMRED THE ABOVE. SHE INDICATED THAT PLAN IS FOR PT TO RETURN TO [facility] ONCE MEDCIALLY STABLE. CM REACHED OUT TO [facility]. THEY INDICATED THAT PT HAD BEEN [facility]. PT HAS USED A WC AND A LIFT DEVICE PER PT'S SISTER. PT'S POTASSIUM WAS OFF THIS DAY AND NEEDS TO BE CORRECTED PRIOR TO PROCEDURE. [facility] CM FOLLOWING REGARDING DC PLANNING.
[2022-01-06 20:22] VITALS: BP 171/86
[2022-01-07 04:19] VITALS: BP 142/67
[2022-01-07 04:30] LABS: HEMATOCRIT 30.2 % (42.0-52.0); HEMOGLOBIN 9.8 gm/dL (14.0-18.0); MCHC 32.5 g/dL (28.0-37.0); MCV 98.5 fL (80.0-100.0); RBC 3.06 mil/uL (4.50-6.00); RDW 17.2 % (10.5-14.5); WBC 4.5 thou/uL (4.0-11.0)
[2022-01-07 04:34] LABS: CALCIUM 9.4 mg/dL (8.5-10.1); CREATININE 1.4 mg/dL (0.7-1.3)
[2022-01-07 04:47] LABS: POTASSIUM 5.2 mmol/L (3.5-5.1)
--- NOTE | 2022-01-07 06:11 | NUR ---
Patient is alert and oriented x4. Patient is on room air. Patient has been NPO since midnight besides pain medication which was administered with minimal amounts of water. Patient is on a heart healthy diet when not NPO. Patient is CC/ tele and has been sinus rhythm this shift. Patients last BM was 01/06/22. Patient has been both continent and incontinent of urine this shift. Patient has been offered repositioning every two hours but has not accepted at every scheduled turn. Patient has an IV in his right forearm that is patent and saline locked. 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 Area where amputation was appears to be dry. This RN offered to apply lotion to patients feet/ legs and patient declined stating that it was fine ad always like that. Patient will continue to be monitored.
[2022-01-07 07:35] VITALS: BP 150/59
--- NOTE | 2022-01-07 09:26 | NUR ---
PLEASE REFER TO OT VARIANCE
[2022-01-07 11:05] VITALS: BP 152/65
--- NOTE | 2022-01-07 12:48 | NUR ---
PT WENT FOR AORTOGRAM WITH POSSIBLE STENT PLACEMENT THIS DAY. CARE TEAM INDICATED THAT PT MAY POSSIBLY BE MEDICALLY STABLE TO DC BACK TO [facility] TOMORROW. NOTIFIED [facility] AND [facility] IN ADMISSIONS AT THE FACILITY. SHOULD PT BE MEDICALLY STABLE TO DC TOMORROW BACK TO FACILITY CONTACT [facility] AT TO FACILITATE DISCHARGE TRANSPORT. FAX ORDERS TO .
[2022-01-07] MEDS ORDERED: BAYER CHEWABLE81 MG PO (15:26)
[2022-01-07] MEDS ORDERED: CLOPIDOGREL75 MG PO (15:26)
[2022-01-07 16:55] VITALS: BP 148/79
[2022-01-07 20:15] VITALS: BP 173/68
[2022-01-08 03:10] LABS: HEMATOCRIT 29.5 % (42.0-52.0); HEMOGLOBIN 9.6 gm/dL (14.0-18.0); MCH 32.3 pg (26.0-34.0); MCHC 32.7 g/dL (28.0-37.0); MCV 98.9 fL (80.0-100.0); RBC 2.98 mil/uL (4.50-6.00); RDW 16.6 % (10.5-14.5); WBC 7.6 thou/uL (4.0-11.0)
[2022-01-08 03:12] LABS: CREATININE 1.7 mg/dL (0.7-1.3)
[2022-01-08 03:35] LABS: POTASSIUM 6.1 mmol/L (3.5-5.1)
--- NOTE | 2022-01-08 03:45 | NUR ---
NURSING NOTE; PT ALERT AND ORIENTED X4, MOVES ALL EXTREMITIES AND FOLLOWS COMMANDS. PT SAT UP IN BED AT 1930 PER POST CATH PROTOCOL. RIGHT GROIN SITE WITHOUT REDNESS, SWELLING, OR DRAINAGE. AT 0330, POTASSIUM REPORTED CRITICAL AT 6.0. NOTIFIED [facility]. MEDICAL BILLING ASSISTANT/LEFT VOICE MAIL. AWAITING RESPONSE. ALL VS AND ASSESSMENTS CHARTED. PAIN MEDICATION GIVEN ORDERED FOR CHRONIC PAIN. NO DISTRESS NOTED AT THIS TIME. WILL CONTINUE TO MONITOR.
[2022-01-08 04:45] VITALS: BP 144/69
[2022-01-08 08:41] VITALS: BP 150/65
[2022-01-08 11:24] VITALS: BP 138/57
[2022-01-08 15:45] VITALS: BP 170/69
[2022-01-08 20:15] VITALS: BP 166/71
[2022-01-09 00:30] VITALS: BP 154/80
[2022-01-09 04:17] LABS: CALCIUM 8.7 mg/dL (8.5-10.1); CREATININE 1.5 mg/dL (0.7-1.3); MAGNESIUM 1.8 mg/dL (1.8-2.4); POTASSIUM 4.2 mmol/L (3.5-5.1)
--- NOTE | 2022-01-09 04:35 | NUR ---
RECEIVED PATIENT AT 1900H.ASSESSMENT DONE CHARTED.MEDS GIVEN PER JAN.PAIN MANAGEMENT DONE.ALL NEEDS ATTENDED.TO CONTINOUSLY MONITOR.
[2022-01-09 04:45] VITALS: BP 166/73
[2022-01-09 08:55] VITALS: BP 197/109
[2022-01-09 12:24] VITALS: BP 150/66
[2022-01-09] MEDS ORDERED: FELODIPINE 5 MG5 M1 PO (13:17)
[2022-01-09] MEDS ORDERED: VELTASSA8.4 GM PO (13:17)
[2022-01-09 13:28] VITALS: BP 150/66
--- NOTE | 2022-01-09 18:35 | NUR ---
Pt A&0x4, VS stable and afebrile. In AM pt BP was elevated; controlled with BP medications. Pt reported pain in in right foot and pain medication was given Q4H. Pt requested a stronger pain medication; Dr. Kay made aware. Transportation was scheduled and pt was discharged to [facility]. Pt was offered breathing treatment before discharged and pt stated that he was okay with waiting until he got to [facility] to get his regular breathing treatment/medication at [facility]. Discharge paperwork placed in envelope and given to transport team. No current concerns.
== END 2022-01-09 18:00 ==
LOC: CATH 07:42 → 2N 12:26 → CATH 12:27 → 2N 01-09 18:00
PROVIDERS: Internal Medicine; Nuclear Medicine Nuclear Cardiology; ADMIT Hospitalist; ATTEND Hospitalist
DX: I73.9 Peripheral vascular disease, unspecified (principal); E87.5 Hyperkalemia; Z20.822 Contact with and (suspected) exposure to COVID-19; I25.10 Atherosclerotic heart disease of native coronary artery without angina pectoris; G89.29 Other chronic pain; N17.9 Acute kidney failure, unspecified; I12.9 Hypertensive chronic kidney disease with stage 1 through stage 4 chronic kidney disease, or unspecified chronic kidney disease; N18.9 Chronic kidney disease, unspecified; E78.5 Hyperlipidemia, unspecified; F03.90 Unspecified dementia, unspecified severity, without behavioral disturbance, psychotic disturbance, mood disturbance, and anxiety; R53.81 Other malaise
CPT/HCPCS: 10797; 62110; 62900; 70005